=== PATIENT | female | born 1935 | race Caucasian/White ===

== ENCOUNTER 2016-10-12 06:52 | Inpatient (IN) | payer MEDICARE ==
[~2016-10-12] VITALS: Ht 149.9 cm; Wt 44.0 kg
[2016-10-12 08:00] VITALS: BP_SYST 120; BP_SYST 151; BP_DIAS 70; BP_DIAS 81
[2016-10-12] MEDS ORDERED: OLAN5TAB3 PO (08:21)
[2016-10-12] MEDS ORDERED: PANT40TA4 PO (08:21)
[2016-10-12] MEDS ORDERED: AMLO5TAB2 PO (08:21)
[2016-10-12] MEDS ORDERED: ACETAMINOPHEN 325 MG TABLET PO PRN (08:30)
[2016-10-12] MEDS ORDERED: MAGNESIUM HYDROXIDE 30 ML UDC PO PRN (08:30)
[2016-10-12] MEDS ORDERED: MAG HYDROX/AL HYDROX/SIMETH 30 ML UDC PO PRN (08:30)
[2016-10-12] MEDS: LORAZEPAM 0.5 MG TABLET PO PRN (11:04)
[2016-10-12 16:00] VITALS: BP 110/69
[2016-10-12] MEDS: OLANZAPINE 5 MG/TAB.RAPDIS PO SCH (22:01)
[2016-10-12] MEDS: TEMAZEPAM 7.5 MG CAPSULE PO PRN (22:02)
[2016-10-13 07:25] LABS: ALBUMIN 3.8 g/dL (3.4-5.0); BILIRUBIN,TOTAL 0.7 mg/dL (0.2-1.0); CREATININE 0.8 mg/dL (0.6-1.3); POTASSIUM 3.3 mmol/L (3.5-5.1); TOTAL PROTEIN, SERUM 6.9 g/dL (6.4-8.2)
[2016-10-13 08:15] VITALS: BP 127/62
[2016-10-13] MEDS: AMLODIPINE BESYLATE 5 MG TABLET PO SCH (08:54)
[2016-10-13] MEDS: PANTOPRAZOLE 40 MG TABLET.DR PO SCH (08:55)
[2016-10-13] MEDS ORDERED: POTASSIUM CHLORIDE 20 MEQ TAB.PRT.SR PO ONE (11:00)
[2016-10-13 16:00] VITALS: BP 110/75
[2016-10-13 20:00] VITALS: BP 140/92
[2016-10-13] MEDS: OLANZAPINE 5 MG/TAB.RAPDIS PO SCH (21:09)
[2016-10-13] MEDS: TEMAZEPAM 7.5 MG CAPSULE PO PRN (22:15)
[2016-10-14] MEDS: LORAZEPAM 0.5 MG TABLET PO PRN ×3 (04:32→16:35)
[2016-10-14 08:06] VITALS: BP 137/74
[2016-10-14] MEDS: PANTOPRAZOLE 40 MG TABLET.DR PO SCH (08:15)
[2016-10-14] MEDS: AMLODIPINE BESYLATE 5 MG TABLET PO SCH (08:16)
[2016-10-14] MEDS ORDERED: OLANZAPINE 5 MG/TAB.RAPDIS PO SCH (12:00)
[2016-10-14] MEDS ORDERED: OLANZAPINE 10 MG VIAL IM ONE (12:00)
[2016-10-14 13:19] LABS: BASOPHILS % (AUTO) 0.1 % (0.0-2.0); DIFF TOTAL % 100 %; EOSINOPHILS % (AUTO) 0.3 % (0.0-6.0); HEMATOCRIT 42 % (33-45); HEMOGLOBIN 13.7 g/dL (11.5-14.8); LYMPHOCYTES # (AUTO) 0.8 /CMM (0.8-4.8); LYMPHOCYTES % (AUTO) 10.3 % (20.0-44.0); MEAN CORPUSCULAR HEMOGLOBIN 30 PG (26.0-33.0); MEAN CORPUSCULAR HGB CONC 33 g/dl (31.0-36.0); MEAN CORPUSCULAR VOLUME 92 fL (82-100); MONOCYTES # (AUTO) 0.4 /CMM (0.1-1.30); MONOCYTES % (AUTO) 5.5 % (2.0-12.0); NEUTROPHILS # (AUTO) 6.2 /CMM (1.8-8.9); NEUTROPHILS % (AUTO) 83.8 % (43.0-81.0); PLATELET COUNT (AUTO) 265 /CMM (150-450); RED BLOOD CELL COUNT(AUTO) 4.54 MIL/uL (4.0-5.2); WHITE BLOOD COUNT (AUTO) 7.4 K/uL (4.3-11.0)
[2016-10-14 13:28] LABS: CALCIUM, SERUM 9.3 mg/dL (8.5-10.1); CREATININE 0.9 mg/dL (0.6-1.3); POTASSIUM 3.5 mmol/L (3.5-5.1)
[2016-10-14 16:18] VITALS: BP 131/76
[2016-10-14 19:53] VITALS: BP 131/86
[2016-10-14] MEDS: OLANZAPINE 5 MG/TAB.RAPDIS PO SCH (21:24)
[2016-10-14] MEDS: TEMAZEPAM 7.5 MG CAPSULE PO PRN (23:48)
[2016-10-15 08:00] VITALS: BP 152/87
[2016-10-15] MEDS: PANTOPRAZOLE 40 MG TABLET.DR PO SCH (09:21)
[2016-10-15] MEDS: OLANZAPINE 5 MG/TAB.RAPDIS PO SCH ×2 (09:21→20:45)
[2016-10-15] MEDS: AMLODIPINE BESYLATE 5 MG TABLET PO SCH (09:22)
[2016-10-15 16:16] VITALS: BP 127/90
[2016-10-15 20:12] VITALS: BP 140/69
[2016-10-15] MEDS: TEMAZEPAM 7.5 MG CAPSULE PO PRN (22:09)
[2016-10-16 07:27] LABS: CALCIUM, SERUM 9.2 mg/dL (8.5-10.1); CREATININE 0.8 mg/dL (0.6-1.3); POTASSIUM 3.4 mmol/L (3.5-5.1)
[2016-10-16 08:00] VITALS: BP 159/99
[2016-10-16 08:16] LABS: BASOPHILS % (AUTO) 0.1 % (0.0-2.0); DIFF TOTAL % 100 %; EOSINOPHILS # (AUTO) 0.1 /CMM (0.0-0.7); EOSINOPHILS % (AUTO) 1.6 % (0.0-6.0); HEMATOCRIT 44 % (33-45); HEMOGLOBIN 14.3 g/dL (11.5-14.8); LYMPHOCYTES % (AUTO) 18.3 % (20.0-44.0); MEAN CORPUSCULAR HEMOGLOBIN 30 PG (26.0-33.0); MEAN CORPUSCULAR HGB CONC 33 g/dl (31.0-36.0); MEAN CORPUSCULAR VOLUME 93 fL (82-100); MONOCYTES # (AUTO) 0.4 /CMM (0.1-1.30); MONOCYTES % (AUTO) 6.1 % (2.0-12.0); NEUTROPHILS # (AUTO) 4.2 /CMM (1.8-8.9); NEUTROPHILS % (AUTO) 73.9 % (43.0-81.0); PLATELET COUNT (AUTO) 245 /CMM (150-450); RED BLOOD CELL COUNT(AUTO) 4.73 MIL/uL (4.0-5.2); WHITE BLOOD COUNT (AUTO) 5.7 K/uL (4.3-11.0)
[2016-10-16] MEDS: AMLODIPINE BESYLATE 5 MG TABLET PO SCH (08:45)
[2016-10-16] MEDS: OLANZAPINE 5 MG/TAB.RAPDIS PO SCH ×2 (08:46→21:31)
[2016-10-16] MEDS: PANTOPRAZOLE 40 MG TABLET.DR PO SCH (08:46)
[2016-10-16] MEDS: LORAZEPAM 0.5 MG TABLET PO PRN (12:21)
[2016-10-16 16:00] VITALS: BP 124/77
[2016-10-16] MEDS ORDERED: DIVALPROEX SODIUM 125 MG CAP.SPRINK PO SCH (17:00)
[2016-10-16 20:13] VITALS: BP 113/72
[2016-10-16] MEDS: TEMAZEPAM 7.5 MG CAPSULE PO PRN (23:09)
[2016-10-17] MEDS: AMLODIPINE BESYLATE 5 MG TABLET PO SCH (08:27)
[2016-10-17] MEDS: PANTOPRAZOLE 40 MG TABLET.DR PO SCH (08:27)
[2016-10-17] MEDS: OLANZAPINE 5 MG/TAB.RAPDIS PO SCH ×2 (08:28→21:11)
[2016-10-17 08:31] VITALS: BP 143/96
[2016-10-17] MEDS: DIVALPROEX SODIUM 125 MG CAP.SPRINK PO SCH ×2 (13:45→21:10)
[2016-10-17 14:13] LABS: KETONES,URINE TRACE (NEGATIVE); LEUKOCYTE ESTERASE ,URINE 3+ (NEGATIVE)
[2016-10-17 14:16] LABS: ADD UA MICROSCOPIC YES
[2016-10-17 15:18] LABS: ADD URINE CULTURE YES; RBC,URINE 0-2 /HPF (0-2)
[2016-10-17 16:00] VITALS: BP 144/91
[2016-10-17] MEDS: SULFAMETH/TRIMETH 800/160 MG 1 UDTAB TABLET PO SCH (16:22)
[2016-10-17] MEDS: LORAZEPAM 0.5 MG TABLET PO PRN (19:45)
[2016-10-17 20:11] VITALS: BP 134/96
[2016-10-17] MEDS: TEMAZEPAM 7.5 MG CAPSULE PO PRN (21:11)
[2016-10-18 08:50] VITALS: BP 163/90
[2016-10-18] MEDS: SULFAMETH/TRIMETH 800/160 MG 1 UDTAB TABLET PO SCH ×2 (09:27→18:18)
[2016-10-18] MEDS: OLANZAPINE 5 MG/TAB.RAPDIS PO SCH ×2 (09:27→21:19)
[2016-10-18] MEDS: AMLODIPINE BESYLATE 5 MG TABLET PO SCH (09:27)
[2016-10-18] MEDS: DIVALPROEX SODIUM 125 MG CAP.SPRINK PO SCH ×2 (09:27→21:17)
[2016-10-18] MEDS: PANTOPRAZOLE 40 MG TABLET.DR PO SCH (09:31)
[2016-10-18] MEDS: HYDROCHLOROTHIAZIDE 25 MG TABLET PO SCH (14:08)
[2016-10-18 16:00] VITALS: BP 112/68
[2016-10-18] MEDS ORDERED: Z GUARD REMEDY 2 OZ OINT TP PRN (17:30)
[2016-10-18 20:00] VITALS: BP 143/81
[2016-10-18] MEDS: LORAZEPAM 0.5 MG TABLET PO PRN (21:17)
[2016-10-18] MEDS: TEMAZEPAM 7.5 MG CAPSULE PO PRN (22:54)
[2016-10-19] MEDS: LORAZEPAM 0.5 MG TABLET PO PRN ×2 (03:07→13:43)
[2016-10-19 08:00] VITALS: BP 136/85
[2016-10-19] MEDS: SULFAMETH/TRIMETH 800/160 MG 1 UDTAB TABLET PO SCH (08:18)
[2016-10-19] MEDS: PANTOPRAZOLE 40 MG TABLET.DR PO SCH (08:18)
[2016-10-19 08:19] VITALS: BP 136/85
[2016-10-19] MEDS: HYDROCHLOROTHIAZIDE 25 MG TABLET PO SCH (08:19)
[2016-10-19] MEDS: DIVALPROEX SODIUM 125 MG CAP.SPRINK PO SCH (08:19)
[2016-10-19] MEDS: OLANZAPINE 5 MG/TAB.RAPDIS PO SCH (08:19)
[2016-10-19] MEDS: AMLODIPINE BESYLATE 5 MG TABLET PO SCH (08:19)
[2016-10-19] MEDS ORDERED: HYDROGEL DRESSING 90 GM TUBE TP PRN (08:30)
[2016-10-19] MEDS ORDERED: HYDROGEL DRESSING 90 GM TUBE TP SCH (09:00)
== END 2016-10-19 13:55 | DRG 885 ==
LOC: GPS 07:45
PROVIDERS: ADMIT Psychiatry & Neurology Psychosomatic Medicine; ATTEND Nurse Practitioner Acute Care
DX: F29 Unspecified psychosis not due to a substance or known physiological condition (principal); F02.80 Dementia in other diseases classified elsewhere, unspecified severity, without behavioral disturbance, psychotic disturbance, mood disturbance, and anxiety; G30.9 Alzheimer's disease, unspecified; F32.9 Major depressive disorder, single episode, unspecified; I10 Essential (primary) hypertension
CPT/HCPCS: 36415; 80048-TC; 80053-TC; 80061-TC; 81000-TC; 83735-TC; 84443-TC; 85025-TC; 87086-TC; A6248; J3490